=== PATIENT | female | born 1965 | race Caucasian/White ===

== ENCOUNTER 2018-02-22 16:04 | Emergency (ER) | payer MEDICAID, OTHER, SELFPAY ==
--- NOTE | 2018-02-22 17:06 | ERPHSYRPT ---
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 pain present at all times worse with movement Triage Nursing Assessment: swelling noted to right ankle no bruising to area pain noted to inner ankle radiating down arch. pt able to move all digits and able to bear weight. pedal pulse strong Physician History: This is a 52-year-old white female she arrives with complaint of pain in her right foot and ankle left knee after falling yesterday she has pain in the right lateral foot in the plantar surface of the foot also pain in the right lateral ankle with movement and palpation. Also pain with palpation of movement of the left knee. Past medical history is negative. Past surgical history includes cholecystectomy and hysterectomy. Timing/Duration: yesterday Severity: moderate Modifying Factors: Improves With: movement Associated Symptoms: No nausea, No vomiting, No abdominal pain, No shortness of breath, No heartburn, No diaphoresis, No cough, No chills, No chest pain, No fever, No headaches, No loss of appetite, No malaise, No rash, No syncope, No seizure, No weakness Allergies/Adverse Reactions: No Known Drug Allergies Allergy (Unverified 02/22/18 16:24) Home Medications: Dextroamphetamine/Amphetamine [Adderall Xr 15 mg Capsule] 15 mg PO DAILY [History] Sertraline HCl [Zoloft] 200 mg PO DAILY 02/22/18 [History] lamoTRIgine [Lamictal] 150 mg PO BID 02/22/18 [History] Hx Tetanus, Diphtheria Vaccination/Date Given: Yes - Review of Systems Constitutional: No Fever, No Chills Eyes: No Symptoms Ears, Nose, & Throat: No Symptoms Respiratory: No Cough, No Dyspnea Cardiac: No Chest Pain, No Edema, No Syncope Abdominal/Gastrointestinal: No Abdominal Pain, No Nausea, No Vomiting, No Diarrhea Genitourinary Symptoms: No Dysuria Musculoskeletal: Other (pain right lateral ankle, pain right foot plantar surface and medially, pain right knee) Skin: No Rash Neurological: No Dizziness, No Focal Weakness, No Sensory Changes Psychological: No Symptoms Endocrine: No Symptoms All Other Systems: Reviewed and Negative - Past Medical History Pertinent Past Medical History: No - Past Surgical History Past Surgical History: Yes Gastrointestinal: Cholecystectomy Female Surgical History: Hysterectomy - Social History Smoking Status: Never smoker Drug Use: none - Nursing Vital Signs Nursing Vital Signs: Initial Vital Signs Temperature 98.1 F 02/22/18 16:14 Pulse Rate 71 02/22/18 16:14 Respiratory Rate 18 02/22/18 16:14 Blood Pressure 107/66 02/22/18 16:14 O2 Sat by Pulse Oximetry 100 02/22/18 16:14 Pain Scale Pain Intensity 6 - Physical Exam General Appearance: mild distress Eye Exam: PERRL/EOMI, eyes nml inspection Ears, Nose, Throat Exam: normal ENT inspection, TMs normal, pharynx normal, moist mucous membranes Neck Exam: normal inspection, non-tender, supple, full range of motion Respiratory Exam: normal breath sounds, lungs clear, No respiratory distress Cardiovascular Exam: regular rate/rhythm, normal heart sounds, normal peripheral pulses Gastrointestinal/Abdomen Exam: soft, normal bowel sounds, No tenderness, No mass Back Exam: normal inspection, normal range of motion, No CVA tenderness, No vertebral tenderness Extremity Exam: other (rright ankle with pain with palpation and movement laterally, pain right lateral foot plantar surface right foot with palpation and movement, good capillary refill all toes, left knee tender with palpapation and movement anteriorly, full range of motion to left knee, left anterior drawer posterior drawer stable, left knee stable to MCL stress, lcl stress) Neurologic Exam: alert, oriented x 3, cooperative, glazier stained glass II-XII nml as tested, normal mood/affect, nml cerebellar function, nml station & gait, sensation nml, No motor deficits Skin Exam: normal color, warm, dry, No rash SpO2 Interpretation: normal (100%) SpO2: 100 Oxygen Delivery: Room Air - Course Nursing assessment & vital signs reviewed: Yes - Radiology Exams Left Knee X-ray Interpretation: Interpreted by me, Other (defect in the superior lateerl left knee appears to be old) Left Ankle X-ray Interpretation: Interpreted by me (x-ray left ankle hyperlucent area inferior to distal left fibula appears to be old.) Left Foot X-ray Interpretation: Interpreted by me, No Fracture, No Subluxation Ordered Tests: Active Orders 24 hr Category Date Time Status Immobilizer STAT Care 02/22/18 17:40 Active Splint STAT Care 02/22/18 17:40 Active ANKLE (3 VIEWS) Stat Exams 02/22/18 16:59 Taken FOOT (MINIMUM 3 VIEWS) Stat Exams 02/22/18 16:59 Taken KNEE (3 VIEWS) Stat Exams 02/22/18 17:00 Taken Medication Summary Discontinued Medications Generic Name Dose Route Start Last Admin Trade Name Abundio PRN Reason Stop Dose Admin Diphtheria/Tetanus/Acell Pertussis 0.5 ml 02/22/18 17:00 02/22/18 17:36 Adacel Vial IM 02/22/18 17:01 0.5 ml .ONCE ONE Administration Diphtheria/Tetanus/Acell Pertussis Confirm 02/22/18 17:24 Adacel Vial Administered 02/22/18 17:25 Dose 0.5 ml IM .STK-MED ONE Ketorolac Tromethamine 60 mg 02/22/18 17:00 02/22/18 17:37 Toradol 30 Mg Injection IM 02/22/18 17:01 60 mg STAT ONE Administration Ketorolac Tromethamine Confirm 02/22/18 17:21 Toradol 30 Mg Injection Administered 02/22/18 17:22 Dose 60 mg .ROUTE .STK-MED ONE - Progress Progress: improved Progress Note: 02/22/18 17:34 52-year-old white female arrives with complaint of pain in her right lateral ankle right plantar surface and lateral foot since falling yesterday. Also with pain and edema in her left knee since yesterday. Patient with minimal pain on the left anterior knee she has full range of motion to the left knee left knee is stable to anterior drawer posterior drawer MCL stress and LCL stress. Right foot is tender with palpation to the right lateral ankle and there is a with palpation in the right lateral foot. X-ray of the left ankle there appears to be a hyperlucent area inferior to the distal right fibula This appears to be old. X-ray of the left knee appears to show a defect in the left lateral superior patella this again is very rounded and appears to be old. X-ray of the left foot is unremarkable. Will go ahead and place a left knee immobilizer place an air splint right ankle Will give patient a referral to Dr. Melgar. Place patient on [facility] - Departure Time of Disposition: 17:41 Departure Disposition: Home Clinical Impression: patellar defect left patella , Avulsion fracture right ankle age undete Strain of left knee Qualifiers: Encounter type: initial encounter Qualified Code(s): S86.912A - Strain of unspecified muscle(s) and tendon(s) at lower leg level, left leg, initial encounter Right ankle strain Qualifiers: Encounter type: initial encounter Qualified Code(s): S96.911A - Strain of unspecified muscle and tendon at ankle and foot level, right foot, initial encounter Condition: Fair Critical Care Time: No Referrals: MICHAEL MELGAR [ACTIVE STAFF] - Additional Instructions: Return home. Ice to right knee left ankle 24-48 hours. [place] 5/325 #12 one orally every 4-6 hours as needed for pain. Follow-up with Dr. Melgar or [facility] orthopedics. Call tomorrow morning. Return for acute distress or for severe symptoms. Your x-rays have been preliminarily read they will be reread tomorrow you'll be contacted if any discrepancies are noted. Prescriptions: Hydrocodone/Acetaminophen [[place] 5-325 Tablet] 1 tab PO Q4-6HPRN PRN #12 tablet MDD 6 tablets PRN Reason: Pain
[2018-02-22] MEDS ORDERED: TORAdol 30 mg Injection ONE (17:21)
[2018-02-22] MEDS ORDERED: Adacel Vial IM ONE (17:24)
[2018-02-22] MEDS: Adacel Vial IM ONE (17:36)
[2018-02-22] MEDS: TORAdol 30 mg Injection IM ONE (17:37)
[2018-02-22 17:42] VITALS: PULSE 68
[2018-02-22 18:16] VITALS: BP 117/75; O2SAT 98
--- NOTE | 2018-02-22 19:51 | XRAY ---
Indication: Pain and swelling following fall. Comparison: None 3 views of the left knee demonstrates bipartite patella and mild anterior tibial soft tissue swelling. No other bony, articular, or soft tissue abnormalities.
--- NOTE | 2018-02-22 19:53 | XRAY ---
Indication: Pain and swelling following fall. Comparison: None 3 views of the right ankle demonstrates lateral malleolar tip well-circumscribed ossification either developmental versus old injury. No other bony, articular, or soft tissue abnormalities.
--- NOTE | 2018-02-22 19:53 | XRAY ---
Indication: Pain and swelling following fall. Comparison: None 3 nonweightbearing views of the right foot tiny well-circumscribed ossification lateral to the 1st IP joint either developmental versus old injury. No other bony, articular, or soft tissue abnormalities.
== END 2018-02-22 18:30 | disposition home or self-care (01) ==
LOC: ED 16:04
DX: S86.912A Strain of unspecified muscle(s) and tendon(s) at lower leg level, left leg, initial encounter (principal); S96.911A Strain of unspecified muscle and tendon at ankle and foot level, right foot, initial encounter; X50.0XXA Overexertion from strenuous movement or load, initial encounter; W17.89XA Other fall from one level to another, initial encounter
CPT/HCPCS: 73562; 73610; 73630; 90471; 90715; 96372; 99284; J1885; L1830

== ENCOUNTER 2021-03-18 17:37 | Emergency (ER) | payer OTHER ==
[2021-03-18 18:32] VITALS: O2SAT 99
[2021-03-18] MEDS ORDERED: Erythromycin 3.5 GM OPHTH. OP ONE (18:47)
--- NOTE | 2021-03-18 18:49 | ERPHSYRPT ---
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 Does not know what happened with possible exposure to chemical but is not sure about it. Up-to-date with immunizations/tetanus. No URI symptoms. No discharge or tearing. Timing/Duration: yesterday, gradual onset, worse Location: right eye Severity: moderate Apparent Injury: no Associated Symptoms: redness, No pain, No burning, No itching, No sensitivity to light, No matting, No eyelid swelling, No foreign body sensation, No decreased vision, No blurred vision, No double vision Visual Assistive Devices: None Allergies/Adverse Reactions: No Known Drug Allergies Allergy (Verified 03/18/21 18:32) Home Medications: Dextroamphetamine/Amphetamine [Adderall Xr 15 mg Capsule] 15 mg PO DAILY 02/22/18 [History] Sertraline HCl [Zoloft] 200 mg PO DAILY 02/22/18 [History] lamoTRIgine [Lamictal] 150 mg PO BID 02/22/18 [History] Hx Tetanus, Diphtheria Vaccination/Date Given: Yes Hx Influenza Vaccination/Date Given: No Hx Pneumococcal Vaccination/Date Given: No Immunizations Up to Date: Yes Travel Risk - International Travel Have you traveled outside of the country in past 3 weeks: No - Coronavirus Screening Are you exhibiting any of the following symptoms?: No Close contact with a COVID-19 positive Pt in past 14-21 Days: No - Vaccine Status Have you recieved a Covid-19 vaccination: Yes 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: [employer] - Review of Systems Constitutional: No Symptoms Eyes: Eye Redness Ears, Nose, & Throat: No Symptoms Respiratory: No Symptoms Cardiac: No Symptoms Abdominal/Gastrointestinal: No Symptoms Genitourinary Symptoms: No Symptoms Musculoskeletal: No Symptoms Skin: No Symptoms Neurological: No Symptoms Psychological: No Symptoms Endocrine: No Symptoms - Past Medical History Pertinent Past Medical History: No - Past Surgical History Past Surgical History: Yes Gastrointestinal: Cholecystectomy Musculoskeletal: Orthopedic Surgery Female Surgical History: Hysterectomy Other Surgical History: shoulder and neck - Social History Smoking Status: Never smoker Exposure to second hand smoke: No Drug Use: none Patient Lives Alone: Yes - Female History Hx Last Menstrual Period: post Hx Now: No - Nursing Vital Signs Nursing Vital Signs: Initial Vital Signs Temperature 97.6 F 03/18/21 18:27 Pulse Rate 91 H 03/18/21 18:27 Respiratory Rate 18 03/18/21 18:27 Blood Pressure 127/77 03/18/21 18:27 O2 Sat by Pulse Oximetry 99 03/18/21 18:27 Pain Scale Pain Intensity 0 - Physical Exam General Appearance: no apparent distress Eye Exam: right eye: conjunctival hemorrhage, left eye: normal inspection, bilateral eye: PERRL, EOMI Ears, Nose, Throat Exam: normal ENT inspection, TMs normal, pharynx normal Neck Exam: normal inspection, non-tender, supple, full range of motion Respiratory Exam: normal breath sounds, lungs clear Cardiovascular Exam: regular rate/rhythm, normal heart sounds Extremity Exam: normal inspection Neurologic: alert, oriented x 3, cooperative, information systems audit manager II-XII nml as tested, normal mood/affect Skin Exam: normal color SpO2 Interpretation: normal SpO2: 99 O2 Delivery: Room Air Ordered Tests: Medication Summary Discontinued Medications Generic Name Dose Route Start Last Admin Trade Name Toddq PRN Reason Stop Dose Admin Erythromycin 3.5 gm 03/18/21 18:47 03/18/21 19:15 Erythromycin 3.5 Gm Ophth. OP 03/18/21 18:48 3.5 gm STAT ONE Administration Erythromycin Confirm 03/18/21 19:08 Erythromycin 1 Gm Administered 03/18/21 19:09 Dose 1 gm .ROUTE .STK-MED ONE - Progress Progress: unchanged Progress Note: 03/18/21 19:27 Patient has subconjunctival hemorrhage. No corneal scar or foreign body. No foreign body sensation. She is given erythromycin ointment and outpatient follow-up recommended. No visual disturbance noticed. Counseled pt/family regarding: diagnosis, need for follow-up - Departure Departure Disposition: Home Clinical Impression: Subconjunctival hemorrhage of right eye Condition: Stable Critical Care Time: No Referrals: BETTY CHAMBERS [Primary Care Provider] - (1-2 days for reevaluation) JOSETTE AKHTAR [NON-STAFF PHY W/O PRIVILEGES] - (Call tomorrow for reevaluation) Instructions: Subconjunctival Hemorrhage Additional Instructions: Apply cool compresses. Continue with ointment 3-4 times a day for 7 days. Follow-up with ophthalmology in the next 1 to 2 days. Return to ER for having pain, discharge, difficulty vision, burning sensation, itching etc.
[2021-03-18] MEDS ORDERED: Erythromycin 1 GM ONE (19:08)
[2021-03-18 19:31] VITALS: BP 118/72; PULSE 73
== END 2021-03-18 19:31 | disposition home or self-care (01) ==
LOC: ED 17:37
DX: H11.30 Conjunctival hemorrhage, unspecified eye (principal)
CPT/HCPCS: 99283; A9270-GY

== ENCOUNTER 2022-02-13 10:12 | Day surgery (SDC) | payer OTHER ==
[2022-02-13] MEDS ORDERED: Sodium Chloride 0.9(Preservative Free) 10 ML IJ ONE (10:13)
[2022-02-13] MEDS ORDERED: LIDOCAINE HCL 1% 50 MG/5 ML VL PF IJ ONE (10:13)
[2022-02-13] MEDS ORDERED: Depo-Medrol 40 MG/ML IM ONE (10:13)
[2022-02-13] MEDS ORDERED: Marcaine Mpf 0.5% Vial 30 Ml IJ ONE (10:13)
[2022-02-13] MEDS ORDERED: DIPRIVAN 200 MG/20 ML IV ONE (11:33)
--- NOTE | 2022-02-13 12:27 | XRAY ---
Indication: Lumbar SARAH. Intraoperative fluoroscopy provided for 13 seconds. 2 digital spot image submitted for interpretation demonstrates posterior midline needle tip projecting just posterior to lumbosacral interspace. Small amount of contrast injected for needle tip placement. Correlate with intraoperative findings/report.
--- NOTE | 2022-02-13 12:27 | XRAY ---
13 seconds fluoroscopy time in surgery for lumbar SARAH.
--- NOTE | 2022-02-13 12:27 | XRAY ---
Indication: Left greater trochanter bursa injection. Intraoperative fluoroscopy provided for 10 seconds. Single digital spot image obtained prone submitted for interpretation demonstrates needle tip lateral to the left greater trochanter. Small amount of contrast injected for needle tip placement. Correlate with intraoperative findings/report.
[2022-02-13] MEDS ORDERED: Lactated Ringers 1,000 ML IV ONE (12:28)
--- NOTE | 2022-02-13 12:28 | XRAY ---
10 seconds fluoroscopy time in surgery for injection of the greater trochanter of the left hip.
== END 2022-02-13 11:59 | disposition home or self-care (01) ==
LOC: SDC-PAIN 10:12
PROVIDERS: ATTEND Psychiatry & Neurology Pain Medicine
DX: M54.16 Radiculopathy, lumbar region (principal); M16.12 Unilateral primary osteoarthritis, left hip; Z79.899 Other long term (current) drug therapy
CPT/HCPCS: 20610; 62323; 72100; 73501; 77002; 77003; J1030; J2001; J2704; Q9966